=== PATIENT | male | born 1990 ===

== ENCOUNTER 2017-11-19 18:09 | Emergency (ER) | payer OTHER ==
[2017-11-19 18:23] VITALS: RESP 18; O2SAT 100
[2017-11-19] MEDS ORDERED: Naproxen 500 MG TAB PO ONE ×2 (18:44→19:13)
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
[2017-11-19 19:51] VITALS: BP 122/70; PULSE 78; TEMP 98
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
== END 2017-11-19 20:38 | disposition home or self-care (01) ==
LOC: H.ER 18:09
DX: S59.901A Unspecified injury of right elbow, initial encounter (principal); V43.62XA Car passenger injured in collision with other type car in traffic accident, initial encounter; Y92.410 Unspecified street and highway as the place of occurrence of the external cause